=== PATIENT | male | born 1985 | race African-American/Black ===

== ENCOUNTER 2017-10-17 20:08 | Emergency (ER) | payer OTHER ==
[~2017-10-17] VITALS: Ht 175.3 cm; Wt 77.8 kg
[2017-10-17 20:18] VITALS: TEMP 36.8; Ht 175.3 cm; Wt 77.8 kg
--- NOTE | 2017-10-17 20:35 | EMERGENCY ROOM VISIT NOTE ---
History Report prepared by Chely: Jaimie Ann Under the Supervision of: Dr. Kian Kaufman D.O. First contact with patient: 20:11 Chief Complaint: SEIZURE Stated Complaint: SEIZURE History of Present Illness The patient is a 33 year old male who presents to the Emergency Room with complaints of a resolved seizure that occurred about an hour prior to arrival. He reports that he was hit in the face with a basketball, noting that he lost consciousness and woke up a few minutes later. The patient complains of pain in his nose and on the back of his head. He denies a history of seizures. Per EMS, the patient first reported that he was smoking a cigarette when he experienced seizure like behavior. The guard who saw the patient during this incident noted that the patient was laying on the floor unconscious and drooling. 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 Review of Systems See HPI for pertinent positives & negatives. A total of 10 systems reviewed and were otherwise negative. Past Medical & Surgical Medical Problems: (1) No Known Active Medical Problems Family History Patient reports no known family medical history. Patient did not report any pertinent family history. Social History Smoking Status: Current Some Day Smoker Alcohol Use: none Drug Use: marijuana Housing Status: other (care home) Occupation Status: other (care home) Physical Exam Vital Signs Date Time Temp Pulse Resp B/P (MAP) Pulse Ox O2 Delivery O2 Flow Rate FiO2 10/17/17 22:28 69 14 100 10/17/17 22:08 61 18 98 Room Air 10/17/17 22:01 125/89 10/17/17 21:41 123/76 10/17/17 21:08 72 24 10/17/17 21:07 73 10/17/17 20:18 36.8 85 13 109/99 99 Room Air Physical Exam GENERAL: Patient is awake, alert, and in no acute distress. Patient is resting comfortably and showing no signs of anxiety EYES: The conjunctivae are clear. The pupils are round and reactive. EARS, NOSE, MOUTH AND THROAT: Tenderness over bridge of nose. Abrasion under left naris. No septal hematoma noted. Mucous membranes are moist tongue is midline NECK: The neck is nontender and supple. RESPIRATORY: Normal respiratory effort is noted there is no evidence of wheezing rhonchi or rales CARDIOVASCULAR: Regular rate and rhythm noted there no murmurs rubs or gallops normal S1 normal S2 GASTROINTESTINAL: The abdomen is soft. Bowel sounds are present in all quadrants. Abdomen is nontender BACK: No midline tenderness or or step-off noted range of motion in flexion extension as well as rotation no signs of muscle spasm noted MUSCULOSKELETAL/EXTREMITIES: There is no evidence of gross deformity full range of motion is noted in the hips and shoulders SKIN: There is no obvious evidence of any rash. There are no petechiae, pallor or cyanosis noted. NEUROLOGIC: Patient is awake alert and oriented x3 strength is symmetric patellar reflexes are 2+ bilaterally Medical Decision & Procedures ER Provider Diagnostic Interpretation: Radiology results as stated below per my review and radiologist interpretation: CERVICAL SPINE W/O CT DOSE: HISTORY: Trauma. Seizure. injury TECHNIQUE: Multiaxial CT images of the cervical spine were performed and reformatted in the sagittal and coronal plane without the use of contrast. A dose lowering technique was utilized adhering to the principles of ALARA. COMPARISON: None. FINDINGS: No fractures. No subluxation. Prevertebral soft tissues and the C1-C2 interval are intact. No pneumothorax. Reversal of the normal cervical curvature consistent with muscular spasm IMPRESSION: No fractures within the cervical spine. Muscle spasm The above report was generated using voice recognition software. It may contain grammatical, syntax or spelling errors. Electronically signed by: Melo Patel M.D. 10/17/2017 9:58 PM Dictated Date/Time: 10/17/2017 9:56 PM CHEST ONE VIEW PORTABLE CLINICAL HISTORY: SEIZURE mental status change COMPARISON STUDY: No previous studies for comparison. FINDINGS: The bones soft tissues and hemidiaphragms are normal. The cardiomediastinal silhouette is normal. The lungs are clear. The pulmonary vasculature is normal. IMPRESSION: Negative chest. The above report was generated using voice recognition software. It may contain grammatical, syntax or spelling errors. Electronically signed by: Melo Patel M.D. 10/17/2017 9:01 PM Dictated Date/Time: 10/17/2017 9:00 PM HEAD WITHOUT CONTRAST (CT) CT DOSE: 1142.30 mGy.cm HISTORY: Seizure. Mental status change. SEIZURE TECHNIQUE: Multiaxial CT images of the head were performed without the use of intravenous contrast. A dose lowering technique was utilized adhering to the principles of ALARA. Comparison: None. Findings: The paranasal sinuses and mastoid air cells are clear. There is a low density left frontal lobe lesion measuring 3.5 x 2.8 cm. Diagnostic considerations include infarct, neoplasm, versus abscess. No evidence for acute intracranial hemorrhage. No midline shift. Slight sulcal effacement of several sulci over the left frontal region. Impression: 1. Low density left frontal lobe lesion measuring 3.5 x 2.8 cm. 2. Diagnostic considerations are as above but include infarct versus neoplasm 3. MRI of the brain with gadolinium enhancement is suggested as follow-up. The above report was generated using voice recognition software. It may contain grammatical, syntax or spelling errors. Electronically signed by: Melo Patel M.D. 10/17/2017 9:50 PM Dictated Date/Time: 10/17/2017 9:48 PM FACIAL BONES-MXILLOFAC WITHOUT CT DOSE: HISTORY: Trauma injury TECHNIQUE: Multiaxial CT images of the maxillofacial region were performed and reformatted in the coronal plane without the use of contrast. A dose lowering technique was utilized adhering to the principles of ALARA. COMPARISON: None. FINDINGS: The visualized cervical spine, skull base, pterygoid plates, nasal bones, lamina papyracea, orbital floors, mandible, and zygomatic arches are intact. No fractures. The orbits are unremarkable. IMPRESSION: No fractures within the maxillofacial region. The above report was generated using voice recognition software. It may contain grammatical, syntax or spelling errors. Electronically signed by: Melo Patel M.D. 10/17/2017 9:56 PM Dictated Date/Time: 10/17/2017 9:51 PM Laboratory Results 10/17/17 20:50 Red Blood Count 5.06, Mean Corpuscular Volume 80.0, Mean Corpuscular Hemoglobin 27.5, Mean Corpuscular Hemoglobin Concent 34.3, Mean Platelet Volume 9.8, Neutrophils (%) (Auto) 78.6, Lymphocytes (%) (Auto) 14.2, Monocytes (%) (Auto) 5.2, Eosinophils (%) (Auto) 1.4, Basophils (%) (Auto) 0.3, Neutrophils # (Auto) 8.39, Lymphocytes # (Auto) 1.51, Monocytes # (Auto) 0.55, Eosinophils # (Auto) 0.15, Basophils # (Auto) 0.03 10/17/17 20:50 Test 10/17/17 20:45 10/17/17 20:50 Urine Color YELLOW Urine Appearance CLEAR (CLEAR) Urine pH 6.0 (4.5-7.5) Urine Specific [place] 1.024 (1.000-1.030) Urine Protein 1+ (NEG) Urine Glucose (UA) NEG (NEG) Urine Ketones TRACE (NEG) Urine Occult Blood NEG (NEG) Urine Nitrite NEG (NEG) Urine Bilirubin NEG (NEG) Urine Urobilinogen NEG (NEG) Urine Leukocyte Esterase NEG (NEG) Urine WBC (Auto) 1-5 /hpf (0-5) Urine RBC (Auto) 0-4 /hpf (0-4) Urine Hyaline Casts (Auto) 1-5 /lpf (0-5) Urine Epithelial Cells (Auto) 10-20 /lpf (0-5) Urine Bacteria (Auto) NEG (NEG) Urine Opiates Screen NEG (NEG) Urine Methadone, Qualitative NEG (NEG) Urine Barbiturates NEG (NEG) Urine Phencyclidine (PCP) Level NEG (NEG) Ur Amphetamine/Methamphetamine NEG (NEG) MDMA (Ecstasy) Screen NEG (NEG) Urine Benzodiazepines Screen NEG (NEG) Urine Cocaine Metabolite NEG (NEG) Urine Marijuana (THC) NEG (NEG) White Blood Count 10.66 K/uL (4.8-10.8) Red Blood Count 5.06 M/uL (4.7-6.1) Hemoglobin 13.9 g/dL (14.0-18.0) Hematocrit 40.5 % (42-52) Mean Corpuscular Volume 80.0 fL (80-100) Mean Corpuscular Hemoglobin 27.5 pg (25-34) Mean Corpuscular Hemoglobin Concent 34.3 g/dl (32-36) Platelet Count 195 K/uL (130-400) Mean Platelet Volume 9.8 fL (7.4-10.4) Neutrophils (%) (Auto) 78.6 % Lymphocytes (%) (Auto) 14.2 % Monocytes (%) (Auto) 5.2 % Eosinophils (%) (Auto) 1.4 % Basophils (%) (Auto) 0.3 % Neutrophils # (Auto) 8.39 K/uL (1.4-6.5) Lymphocytes # (Auto) 1.51 K/uL (1.2-3.4) Monocytes # (Auto) 0.55 K/uL (0.11-0.59) Eosinophils # (Auto) 0.15 K/uL (0-0.5) Basophils # (Auto) 0.03 K/uL (0-0.2) RDW Standard Deviation 39.6 fL (36.4-46.3) RDW Coefficient of Variation 13.7 % (11.5-14.5) Immature Granulocyte % (Auto) 0.3 % Immature Granulocyte # (Auto) 0.03 K/uL (0.00-0.02) Prothrombin Time 11.0 SECONDS (9.0-12.0) Prothromb Time International Ratio 1.0 (0.9-1.1) Activated Partial Thromboplast Time 24.7 SECONDS (21.0-31.0) Partial Thromboplastin Ratio 1.0 Anion Gap 6.0 mmol/L (3-11) Est Creatinine Clear Calc Drug Dose 83.8 ml/min Estimated GFR () 85.7 Estimated GFR (Non- 73.9 BUN/Creatinine Ratio 9.5 (10-20) Calcium Level 8.7 mg/dl (8.5-10.1) Phosphorus Level 2.3 mg/dl (2.5-4.9) Magnesium Level 1.8 mg/dl (1.8-2.4) Thyroid Stimulating Hormone (TSH) 1.410 uIu/ml (0.300-4.500) Chemistry Specimen Hemolysis Laboratory results per my review. Medications Administered Medications (Trade) Dose Ordered Sig/Leandra Route Start Time Stop Time Status Last Admin Dose Admin Levetiracetam 2000 mg/Dextrose 270 ml @ 999 mls/hr ONE ONCE IV 10/17/17 22:00 10/17/17 22:16 DC 10/17/17 22:22 999 MLS/HR ECG Per My Interpretation Indication: other (seizure) Rate (beats per minute): 72 Rhythm: normal sinus Findings: no ectopy, other (early polarization) Comparison ECG Date: no prior available ED Course 2010: The patient was evaluated in room C9. A complete history and physical examination were performed. 2146: I reevaluated the patient, who was resting. Updated him on test findings and he verbalized complete understanding. 2199: Ordered Levetiracetam 2000mg/ Dextrose 270ml @ 999 mls/hr IV. 2214: Contacting [facility] to transfer patient. 2219: I discussed the patient's case with Dr. Funes, neurosurgeon at [facility]. He recommended the patient go to the Emergency Department there for further diagnostic workup. 2221: I discussed the patient's case with Dr. Carson, emergency medicine at [facility]. He accepted to have the patient transferred in their Emergency Department. 2230: I reevaluated the patient and updated him on test findings and the treatment plan. He verbalized agreement and understanding and will be transferred to [facility]. The patient is now awaiting transfer. Medical Decision Prior records/ancillary studies reviewed. Patient placed in seizure precautions immediately upon arrival. Nursing notes reviewed. The patient's history was concerning for a possible seizure. Differential diagnosis: Etiologies such as infection, hypoglycemia, electrolyte abnormalities, cardiac sources, intracerebral event, trauma, toxicologic, neurologic, as well as others were entertained. The patient is a 32-year-old male who presented to the emergency department from the care home. The patient had a seizure which was witnessed. There was a possible postictal phase noted. The patient arrived at the emergency department awake and alert. He did not have meningismus or focal neurologic deficit. The patient was treated with IV Keppra in the emergency department. The patient was found to have an abnormality on his CT scan which would require further workup and possible intervention. I discussed patient's laboratory and radiographic studies with him. At this time I feel he may require a higher level of care. For this reason I will discuss his case with the neurosurgical group at [facility]. I also discussed this case with the emergency department at [facility]. They have agreed to accept the patient for further workup and further management based on his MRI findings. I discussed this with the patient. Transfer orders were written by myself. Medication Reconcilliation Current Medication List: was personally reviewed by me Blood Pressure Screening Patient's blood pressure: Normal blood pressure Blood pressure disposition: Did not require urgent referral Consults Time Called: 2219 Consulting Physician: Dr. Funes, neurosurgeon at [facility] Returned Call: 2219 I discussed the patient's case with Dr. Funes, neurosurgeon at [facility]. He recommended the patient go to the Emergency Department there for further diagnostic workup. Additional Consults: Time Called: 2221 Consulted Physician: Dr. Carson, emergency medicine at [facility] Returned Call: 2221 Additional Comments: I discussed the patient's case with Dr. Carson, emergency medicine at [facility]. He accepted to have the patient transferred in their Emergency Department. Impression Primary Impression: Seizure Additional Impression: Frontal mass of brain Scribe Attestation The scribe's documentation has been prepared under my direction and personally reviewed by me in its entirety. I confirm that the note above accurately reflects all work, treatment, procedures, and medical decision making performed by me. Departure Information Dispostion Transfer Acute Care Facility ([facility]) Referrals No Doctor, Assigned (PCP) Forms HOME CARE DOCUMENTATION FORM, IMPORTANT VISIT INFORMATION Patient Instructions My [facility] Problem Qualifiers
--- NOTE | 2017-10-17 21:02 | DIAGNOSTIC IMAGING REPORT ---
CHEST ONE VIEW PORTABLE CLINICAL HISTORY: SEIZURE mental status change COMPARISON STUDY: No previous studies for comparison. FINDINGS: The bones soft tissues and hemidiaphragms are normal. The cardiomediastinal silhouette is normal. The lungs are clear. The pulmonary vasculature is normal. IMPRESSION: Negative chest. The above report was generated using voice recognition software. It may contain grammatical, syntax or spelling errors. Electronically signed by: Melo Patel M.D. 10/17/2017 9:01 PM Dictated Date/Time: 10/17/2017 9:00 PM
[2017-10-17 21:14] LABS: BASO % 0.3 %; BASO ABS # 0.03 K/uL (0-0.2); EOS % 1.4 %; EOS ABS # 0.15 K/uL (0-0.5); HEMATOCRIT 40.5 % (42-52); HEMOGLOBIN 13.9 g/dL (14.0-18.0); IG# 0.03 K/uL (0.00-0.02); LYMPH % 14.2 %; LYMPH ABS # 1.51 K/uL (1.2-3.4); MEAN CORPUSCULAR HEMOGLOBIN 27.5 pg (25-34); MEAN CORPUSCULAR HGB CONC 34.3 g/dl (32-36); MEAN PLATELET VOLUME 9.8 fL (7.4-10.4); MONO % 5.2 %; MONO ABS # 0.55 K/uL (0.11-0.59); NEUT % 78.6 %; NEUT ABS # 8.39 K/uL (1.4-6.5); PLATELET COUNT 195 K/uL (130-400); RED CELL DISTRIBUTION WIDTH CV 13.7 % (11.5-14.5); RED CELL DISTRIBUTION WIDTH SD 39.6 fL (36.4-46.3); WHITE BLOOD COUNT 10.66 K/uL (4.8-10.8)
[2017-10-17 21:23] LABS: PTT PATIENT 24.7 SECONDS (21.0-31.0)
[2017-10-17 21:42] LABS: CALCIUM 8.7 mg/dl (8.5-10.1); CREATININE 1.29 mg/dl (0.60-1.40); POTASSIUM 4.1 mmol/L (3.5-5.1)
--- NOTE | 2017-10-17 21:51 | DIAGNOSTIC IMAGING REPORT ---
HEAD WITHOUT CONTRAST (CT) CT DOSE: 1142.30 mGy.cm HISTORY: Seizure. Mental status change. SEIZURE TECHNIQUE: Multiaxial CT images of the head were performed without the use of intravenous contrast. A dose lowering technique was utilized adhering to the principles of ALARA. Comparison: None. Findings: The paranasal sinuses and mastoid air cells are clear. There is a low density left frontal lobe lesion measuring 3.5 x 2.8 cm. Diagnostic considerations include infarct, neoplasm, versus abscess. No evidence for acute intracranial hemorrhage. No midline shift. Slight sulcal effacement of several sulci over the left frontal region. Impression: 1. Low density left frontal lobe lesion measuring 3.5 x 2.8 cm. 2. Diagnostic considerations are as above but include infarct versus neoplasm 3. MRI of the brain with gadolinium enhancement is suggested as follow-up. The above report was generated using voice recognition software. It may contain grammatical, syntax or spelling errors. Electronically signed by: Melo Patel M.D. 10/17/2017 9:50 PM Dictated Date/Time: 10/17/2017 9:48 PM
--- NOTE | 2017-10-17 21:57 | DIAGNOSTIC IMAGING REPORT ---
FACIAL BONES-MXILLOFAC WITHOUT CT DOSE: HISTORY: Trauma injury TECHNIQUE: Multiaxial CT images of the maxillofacial region were performed and reformatted in the coronal plane without the use of contrast. A dose lowering technique was utilized adhering to the principles of ALARA. COMPARISON: None. FINDINGS: The visualized cervical spine, skull base, pterygoid plates, nasal bones, lamina papyracea, orbital floors, mandible, and zygomatic arches are intact. No fractures. The orbits are unremarkable. IMPRESSION: No fractures within the maxillofacial region. The above report was generated using voice recognition software. It may contain grammatical, syntax or spelling errors. Electronically signed by: Melo Patel M.D. 10/17/2017 9:56 PM Dictated Date/Time: 10/17/2017 9:51 PM
--- NOTE | 2017-10-17 21:59 | DIAGNOSTIC IMAGING REPORT ---
CERVICAL SPINE W/O CT DOSE: HISTORY: Trauma. Seizure. injury TECHNIQUE: Multiaxial CT images of the cervical spine were performed and reformatted in the sagittal and coronal plane without the use of contrast. A dose lowering technique was utilized adhering to the principles of ALARA. COMPARISON: None. FINDINGS: No fractures. No subluxation. Prevertebral soft tissues and the C1-C2 interval are intact. No pneumothorax. Reversal of the normal cervical curvature consistent with muscular spasm IMPRESSION: No fractures within the cervical spine. Muscle spasm The above report was generated using voice recognition software. It may contain grammatical, syntax or spelling errors. Electronically signed by: Melo Patel M.D. 10/17/2017 9:58 PM Dictated Date/Time: 10/17/2017 9:56 PM
[2017-10-17] MEDS ORDERED: LEVETIRACETAM IV 2,000 MG in DEXTROSE 5% 250ML 250 ML IV ONE (22:00)
[2017-10-17 22:01] LABS: PHOSPHORUS 2.3 mg/dl (2.5-4.9)
[2017-10-17] MEDS ORDERED: ACETAMINOPHEN 500 MG TAB PO STA (22:28)
--- NOTE | 2017-10-17 22:55 | DIAGNOSTIC IMAGING REPORT ---
R SHOULDER MIN 2 VIEWS ROUTINE CLINICAL HISTORY: right pain, S/P seizure pain COMPARISON: None. DISCUSSION: The bones and joint spaces appear intact. There is no evidence of fracture, dislocation or bony disease. There is no evidence for soft tissue swelling. IMPRESSION: Negative study. The above report was generated using voice recognition software. It may contain grammatical, syntax or spelling errors. Electronically signed by: Melo Patel M.D. 10/17/2017 10:53 PM Dictated Date/Time: 10/17/2017 10:53 PM
[2017-10-17 23:01] VITALS: BP 120/75
[2017-10-17 23:13] VITALS: PULSE 68; O2SAT 98
== END 2017-10-17 23:17 | disposition short-term general hospital (02) ==
LOC: C.EDC 20:10 → EDBD 20:10 → C.EDC 23:17
DX: R56.9 Unspecified convulsions (principal); R22.0 Localized swelling, mass and lump, head; F17.210 Nicotine dependence, cigarettes, uncomplicated